=== PATIENT | female | born 1975 | race Caucasian/White ===

== ENCOUNTER 2018-06-11 08:53 | Emergency (ER) | payer OTHER ==
[~2018-06-11 08:53] MED LIST: ACET-1935 PO; CEP500 PO; LOR5/325 PO; tylenol pm PO
[2018-06-11 09:01] VITALS: BP 115/70
[2018-06-11] MEDS ORDERED: TRIA15OI20 (09:01)
[2018-06-11] MEDS ORDERED: VALA100059 PO (09:01)
[2018-06-11] MEDS ORDERED: TRI05T TP (09:14)
[2018-06-11] MEDS ORDERED: CYPR4TAB5 PO (09:14)
--- NOTE | 2018-06-11 09:15 | ER Report ---
History and Physical Time Seen By MD: 09:02 Hx. of Stated Complaint: PT REPORTS RASH ON LEFT THUMB STARTED TUESDAY, ITCHING AND SWELLING HPI/ROS CHIEF COMPLAINT: Rash to left thumb HISTORY OF PRESENT ILLNESS: Patient is a 43-year-old female with no contributory past medical history who presents with complaint of severe itching to her left thumb. She states symptoms began 2-3 days ago. She denies any traumatic type of an injury. She denies any vesicular type lesions. She states that the bump is severely itchy and somewhat swollen. She cannot recall coming into contact with anything that could've caused irritation. She denies any respiratory symptoms including cough or wheeze. She denies infectious symptoms like fever. Allergies: Coded Allergies: No Known Drug Allergies (Verified , 06/11/18) Home Meds Active Scripts Cyproheptadine Hcl (CYPROHEPTADINE HCL) 4 Mg Tablet, 4 MG PO Q8H for itching, #30 TAB 0 Refills Prov:ARIELLE RAMOS MD 06/11/18 Triamcinolone Acet 0.5% (TRIAMCINOLONE ACETONIDE 0.5%) 15 Gm Cr, 15 GM TP TID for 7 Days, #1 TUBE 1/2 fingertip unit to rash on thumb three times daily for 7 days then discontinue Prov:ARIELLE RAMOS MD 06/11/18 Reported Medications Triamcinolone Acetonide 0.1% Oint 15 Gm Tube (TRIAMCINOLONE ACETONIDE 0.1% 15 GM TUBE) 15 Gm Oint...g. 06/11/18 Valacyclovir Hcl (VALACYCLOVIR) 1,000 Mg Tablet, 1000 MG PO Q8H 06/11/18 [tylenol pm] No Conflict Check, 1 TAB PO PRN 11/29/12 Past Medical/Surgical History Noncontributory Hx Smoking: No Constitutional Vital Sign - Last 24 Hours 06/11/18 06/11/18 08:55 09:01 Temp 98.1 Pulse 78 Resp 16 B/P (MAP) 126/105 115/70 (85) Pulse Ox 93 O2 Delivery Room Air Physical Exam Examination of the Left hand reveals no acute deformity. The patient is able to give a thumbs up sign, is able to make an okay sign, and is able to AB duct the fingers. Sensation is intact over the dorsal 1st web space, the volar aspect of the 2nd finger, and the volar aspect of the 5th finger. Capillary refill is brisk. He is mild swelling and erythema to the left thumb. No vesicular lesions are noted. Medical Decision Making ED Course/Re-evaluation ED Course 06/11/2018 9:11:34 am based on history and physical exam feel that this is some type of contact dermatitis with unknown irritant. Plan will be topical triamcinolone along with antihistamine by mouth. Decision to Disposition Date: Jun 11, 2018 Decision to Disposition Time: 09:23 Depart Departure Latest Vital Signs Vital Signs Date Time Temp Pulse Resp B/P (MAP) Pulse Ox O2 Delivery O2 Flow Rate FiO2 06/11/18 09:01 115/70 (85) 06/11/18 08:55 98.1 78 16 93 Room Air Impression: Primary Impression: Contact dermatitis Condition: Condition Unchanged Disposition: HOME OR SELF-CARE Referrals: KENJI MIMS DO (PCP) New Scripts Cyproheptadine Hcl (CYPROHEPTADINE HCL) 4 Mg Tablet 4 MG PO Q8H for itching, #30 TAB 0 Refills Prov: ARIELLE RAMOS MD 06/11/18 Triamcinolone Acet 0.5% (TRIAMCINOLONE ACETONIDE 0.5%) 15 Gm Cr 15 GM TP TID for 7 Days, #1 TUBE 1/2 fingertip unit to rash on thumb three times daily for 7 days then discontinue Prov: ARIELLE RAMOS MD 06/11/18 Patient Instructions: Contact Dermatitis (ED) Problem Qualifiers Primary Impression: Contact dermatitis Contact dermatitis type: unspecified Contact dermatitis trigger: unspecified trigger Qualified Codes: L25.9 - Unspecified contact dermatitis, unspecified cause ARIELLE RAMOS MD Jun 11, 2018 09:15
== END 2018-06-11 09:30 | disposition home or self-care (01) ==
LOC: ER 09:13
DX: L25.9 Unspecified contact dermatitis, unspecified cause (principal)
CPT/HCPCS: 99281